=== PATIENT | female | born 1950 | race Caucasian/White ===

== ENCOUNTER 2020-03-06 18:30 | Emergency (ER) | payer OTHER, MEDICARE ==
[~2020-03-06] VITALS: Ht 175.3 cm; Wt 95.7 kg
[2020-03-06 18:47] VITALS: Ht 175.3 cm; Wt 95.7 kg
[2020-03-06 21:32] VITALS: BP 159/83
== END 2020-03-06 21:32 | disposition home or self-care (01) ==
LOC: ED 18:30
DX: T82.7XXA Infection and inflammatory reaction due to other cardiac and vascular devices, implants and grafts, initial encounter (principal); E78.00 Pure hypercholesterolemia, unspecified; E03.9 Hypothyroidism, unspecified; Z91.041 Radiographic dye allergy status; Y92.89 Other specified places as the place of occurrence of the external cause
CPT/HCPCS: J1335; J1642